=== PATIENT | female | born 1945 | race Caucasian/White ===

== ENCOUNTER → 2016-11-17 | Outpatient (CLI) | payer OTHER ==
[~2016-11-17] MED LIST: ALLEGRA PO; COUMADIN PO; COUMADIN6 MG PO; FUROSEMIDE40 MG PO; HARD NAILS2500 MCG PO; LANOXIN PO; LANOXIN125 MCG PO; LASIX PO; LOPRESSOR PO; MELATONIN10 M1 PO; METOPROLOL SUCC25 MG PO; NAMBUMETONE PO; NORCO 7.5/325 T1 TAB PO; POTABA500 M1 PO; POTASSIUM GLUCO99 MG PO; PRILOSEC PO; SULFAMETHOXAZOL1 TA4 PO; VITAMIN D350000 UNIT PO; ZESTRIL10 M1 PO; ZYRTEC10 M1 PO; [UNRECOGNIZED DRUG - OTHER]
--- NOTE | ~2016-11-17 | EKG ---
PATIENT: SOFY SPEARS UNIT #: [id number] Ventricular Rate: 60 BPM Atrial Rate: 62 BPM QRS Duration: 102 ms Q-T Interval: 424 ms QTC Calculation(Bezet): 424 ms Calculated R [place]: -5 degrees Calculated T [place]: 51 degrees Diagnosis Line: Atrial fibrillation Diagnosis Line: Cannot rule out Anterior infarct , age Diagnosis Line: undetermined Diagnosis Line: Abnormal ECG Diagnosis Line: No previous ECGs available Diagnosis Line: Confirmed by PITA AGUIAR MD ([id number]) on 11/17/2016 Diagnosis Line: 10:42:57 PM INTERPRETING MD: STEFANIA CLAY
[2016-11-17 08:09] LABS: HEMATOCRIT 45.2 % (35.0-45.0); HEMOGLOBIN 14.4 gm/dL (12.0-16.0); MEAN CELL VOLUME 86.8 FL (83-96); MEAN CORPUSCULAR HEMOGLOBIN 27.6 PG (28-34); MEAN CORPUSCULAR HGB CONC 31.8 g/dL (30-36); MEAN PLATELET VOLUME 9.3 FL (6.5-11.5); RED BLOOD COUNT 5.21 X10e (3.90-5.30); RED CELL DISTRIBUTION WIDTH 14.2 % (11.0-15.5); WHITE BLOOD COUNT 5.4 X10e3 (4.0-10.5)
[2016-11-17 08:24] LABS: INR 1.4; PROTHROMBIN TIME (PATIENT) 15.1 SECONDS (9.6-11.5)
[2016-11-17 08:33] LABS: BUN/CREATININE RATIO 33.63; CALCIUM SERUM 10.5 mg/dL (8.4-10.2); CREATININE SERUM 1.1 mg/dL (0.6-1.4); GLOM FILT RATE Estimated 51.2 mL/min (>60); POTASSIUM 3.8 mmol/L (3.5-5.1)
== END | disposition home or self-care (01) ==
LOC: CCVL 07:44
PROVIDERS: Internal Medicine Cardiovascular Disease
DX: R07.89 Other chest pain (principal); R06.02 Shortness of breath; Z95.2 Presence of prosthetic heart valve; I48.2 Chronic atrial fibrillation; Z79.01 Long term (current) use of anticoagulants; I08.8 Other rheumatic multiple valve diseases; R93.1 Abnormal findings on diagnostic imaging of heart and coronary circulation; I10 Essential (primary) hypertension; Z88.0 Allergy status to penicillin; Z88.1 Allergy status to other antibiotic agents
CPT/HCPCS: 36415; 80048; 82810; 85027; 85347; 85610; 85730; 93005; C1769; C1887; C1894; J0461; J1644; J2250; J2270; J3010

== ENCOUNTER → 2016-12-01 | Outpatient (CLI) | payer OTHER ==
[2016-12-01 09:58] LABS: CALCIUM SERUM 9.4 mg/dL (8.4-10.2); CREATININE SERUM 1.2 mg/dL (0.6-1.4); GLOM FILT RATE Estimated 46.1 mL/min (>60); POTASSIUM 4.2 mmol/L (3.5-5.1)
== END | disposition home or self-care (01) ==
LOC: CLAB 08:59
PROVIDERS: Internal Medicine Cardiovascular Disease
DX: R94.4 Abnormal results of kidney function studies (principal)
CPT/HCPCS: 36415; 80048